=== PATIENT | male | born 1980 | race Caucasian/White ===

== ENCOUNTER 2020-03-05 15:10 | Emergency (ER) | payer OTHER, SELFPAY | END 2020-03-05 15:15 | disposition left against medical advice (07) | LOC: EXPTROY 15:24 | PROVIDERS: Emergency Provider Nurse Practitioner Family | DX: Z53.21 Procedure and treatment not carried out due to patient leaving prior to being seen by health care provider (principal) | CPT/HCPCS: 99199 ==

== ENCOUNTER 2020-03-05 15:32 | Emergency (ER) | payer OTHER, SELFPAY ==
[2020-03-05] VITALS (27 sets, daily range): BP systolic 105–132; BP diastolic 68–98; PULSE 51–98; RESP 8–20; TEMP 36.3; O2SAT 94–100
--- NOTE | ~2020-03-05 | XR_ITS ---
EXAMINATION: XR wrist LT 2V INDICATION: Left wrist pain TECHNIQUE: Two views of the left forearm are obtained. COMPARISON: None available FINDINGS: There is a nail in the ventral soft tissues overlying the distal radius and ulna. The osseo us structures are normal. There appears to be orthopedic hardware in the elbow. IMPRESSION: 1. Nail in the ventral soft tissues overlying the distal radius and ulna without associated osseous a bnormality. Reviewed, dictated and finalized at location A. IMPRESSION: 1. Nail in the ventral soft tissues overlying the distal radius and ulna withou t associated osseous abnormality.
--- NOTE | 2020-03-05 15:52 | ED.GENADULT ---
HPI - General Adult General Chief complaint: Extremity Injury, Upper Stated complaint: nail to wrist Time Seen by Provider: 03/05/20 15:41 Source: patient History of Present Illness HPI narrative: Patient is a 40 y/o male complaining of severe left forearm pain after accidentally shooting a nail into left forearm. Pain is worse with movement. Patient denies other injury. He rates his pain as 8/10. There is no pain radiation. Related Data Allergies Allergy/AdvReac Type Severity Reaction Status Date / Time No Known Allergies Allergy Mild Verified 03/05/20 15:42 Review of Systems Constitutional: Constitutional: Denies chills, Denies fever(s), Denies headache(s) and Denies weakness Eyes: Eyes: Denies blurry vision ENT: Denies headache(s) and Denies neck pain Cardiovascular: Cardiovascular: Denies chest pain and Denies dyspnea Respiratory: Respiratory: Denies cough and Denies dyspnea Gastrointestinal: Gastrointestinal: Denies abdominal pain, Denies diarrhea, Denies nausea and Denies vomiting Genitourinary: Genitourinary: Denies hematuria and Denies dysuria Musculoskeletal: Musculoskeletal: Denies back pain, Denies neck pain and Reports other (+left arm pain with nail FB) Integumentary/Breasts: Skin/Breast: Reports other Neurologic: Denies headache(s) and Denies weakness [facility] Social History Social History Gender identity (if verbalized by the patient): Male Sexual Orientation (if Verbalized by the Patient): Straight or Heterosexual Exam Const: General: no acute distress and well developed Orientation/consciousness: oriented to person, oriented to place, oriented to time and patient oriented x3 HENMT: Head: normocephalic Ears: external ears normal General nose exam: Normal external nose present Eyes: General: appearance normal, both eyes and all related structures Conjunctivae: conjunctivae normal Neck: Neck: normal visual inspection and full ROM Chest: Chest palpation & inspection: normal inspection of the chest and no tenderness Resp: Effort & Inspection: normal respiratory effort Auscultation: clear to auscultation bilaterally Cardio: Rate: regular rate Rhythm: regular rhythm GI: GI Palp: No abdominal tenderness and Yes Soft to palpation Skin: General skin exam: normal color and turgor normal Neuro: General: oriented to person, oriented to place, oriented to time and patient oriented x3 Cognition (Neuro): normal cognition Extrem: General: normal to inspection, full ROM and no pedal edema Left upper extremity: elbow/forearm (nail is stuck in left forearm, thru and thru) Psych: Appearance: grossly normal Mental Status: mental status grossly normal Affect: normal affect Course Consultations Consultation #1: Discussed with Dr. Burt, who recommends discharge on antibiotics and patient can follow up with him as needed. Date: 03/05/20 Time: 18:02 Vital Signs Vital signs: Vital Signs Temperature 36.3 C L 03/05/20 15:39 Pulse Rate 98 03/05/20 15:39 Respiratory Rate 18 03/05/20 15:39 Blood Pressure 117/98 H 03/05/20 15:39 Pulse Oximetry 100 03/05/20 15:39 Temperature 36.3 C L 03/05/20 15:43 Pulse Rate 60 03/05/20 18:25 Respiratory Rate 17 03/05/20 18:25 Blood Pressure 125/71 03/05/20 18:25 Pulse Oximetry 97 03/05/20 18:25 Procedures Foreign Body Removal Foreign Body #1: Foreign Body Removal Date: 03/05/20 Foreign Body Removal Time: 17:15 Time Out Performed: yes Site: left Description of foreign body: other (nail) Sedation/Analgesia: propofol Technique: manual removal Confirmed by:: direct visualization Complications: none Post-procedure exam: awake, alert Procedural Sedation Procedural Sedation #1: Procedural Sedation Date: 03/05/20 Procedural Sedation Time: 17:06 Procedure: removal of nail Provider Performed: s
[2020-03-05] MEDS: TETANUS,DIPHTHERIA,AC PERTUSSIS ADULT (0.5 ML) BOOSTRIX IM (16:04)
[2020-03-05] MEDS: PROPOFOL IV EMULSION 200 MG/20 ML VIAL 100 MG IV PUSH ×2 (17:07→17:10)
[2020-03-05] MEDS: ceFAZolin 2 GM/D5W 50 ML 2 GM/50 ML BAG IVPB (17:33)
== END 2020-03-05 18:28 | disposition home or self-care (01) ==
PROVIDERS: Emergency Provider Emergency Medicine
DX: S51.842A Puncture wound with foreign body of left forearm, initial encounter (principal); W45.0XXA Nail entering through skin, initial encounter; Z23 Encounter for immunization
CPT/HCPCS: 73100; 90471; 90715; 99285; A9270; J0690; J2704